=== PATIENT | male | born 1990 | race Caucasian/White ===

== ENCOUNTER 2020-06-03 12:39 | Emergency (ER) | payer OTHER ==
[2020-06-03 12:48] VITALS: BP 117/56; PULSE 67; RESP 16; TEMP 98
[2020-06-03] MEDS ORDERED: LIDOCAINE 1% INJ 10MG/ML (20 ML MDV) SQ ONE (13:28)
[2020-06-03] MEDS ORDERED: DIPH,PERTUS(ACELL)TETVAC-LF 0.5 ML VIAL IM ONE (13:28)
[2020-06-03] MEDS ORDERED: BACITRACIN OINT 1 EACH PACKET TOPICAL ONE (13:28)
[2020-06-03] MEDS ORDERED: CEPHALEXIN 500MG STARTER PACK 4 CAP BTL PO STA (14:19)
--- NOTE | 2020-06-03 14:19 | ED ---
Wound/Laceration HPI - General Chief Complaint: Wound/Laceration Stated Complaint: R hand laceration Time Seen by Provider: 06/03/20 12:53 Source: patient Mode of arrival: ambulatory Limitations: no limitations - History of Present Illness Initial Comments: 30 year-old male patient presents to the emergency department for evaluation of laceration to his right middle finger. Patient states just prior to arrival he was using a circular saw and accidentally cut his finger. He denies any difficultly with range of motion. Denies numbness or tingling to the finger. Denies any other injuries. He is unsure when his last tetanus vaccine was. Denies use of blood thinners. Patient denies any headache, neck pain, back pain, chest pain, shortness of breath, dizziness, weakness, abdominal pain, nausea, vomiting, or difficulties with bowel movements or urination. - Related Data Previous Rx's Medication Instructions Recorded Cephalexin [Keflex] 500 mg PO BID #10 cap 06/03/20 Allergies Allergy/AdvReac Type Severity Reaction Status Date / Time No Known Allergies Allergy Verified 06/03/20 12:48 Review of Systems ROS Statement: Those systems with pertinent positive or pertinent negative responses have been documented in the HPI. ROS Other: All systems not noted in ROS Statement are negative. Past Medical History Past Medical History: No Reported History History of Any Multi-Drug Resistant Organisms: None Reported Past Surgical History: No Surgical Hx Reported Past Psychological History: No Psychological Hx Reported Smoking Status: Never smoker Past Alcohol Use History: None Reported Past Drug Use History: None Reported General Exam Limitations: no limitations General appearance: alert, in no apparent distress, other (Physical well-devel oped, well-nourished adult male patient in no acute distress. Vital signs upon presentation are T 98.2F with pulse 67, respirations 16, blood pressure 117/56, pulse ox 95% on room air.) Eye exam: Present: normal appearance, PERRL, EOMI. Absent: scleral icterus, conjunctival injection, periorbital swelling ENT exam: Present: normal exam, normal oropharynx, mucous membranes moist Respiratory exam: Present: normal lung sounds bilaterally. Absent: respiratory distress, wheezes, rales, rhonchi, stridor Cardiovascular Exam: Present: regular rate, normal rhythm, normal heart sounds. Absent: systolic murmur, diastolic murmur, rubs, gallop, clicks Extremities exam: Present: full ROM, normal capillary refill, other (There is 2cm laceration to the tip of the right middle finger. No active bleeding. Full ROM with and without resistance. Cap refill less than 3 seconds. Pedal pulses 2+.). Absent: normal inspection, tenderness, pedal edema, joint swelling, calf tenderness Neurological exam: Present: alert, oriented X3, CN II-XII intact Psychiatric exam: Present: normal affect, normal mood Skin exam: Present: warm, dry, intact, normal color. Absent: rash Course Vital Signs 06/03/20 12:45 Temperature 98 F Pulse Rate 67 Respiratory 16 Rate Blood Pressure 117/56 O2 Sat by Pulse 95 Oximetry Procedures - Laceration Laceration #1 Consent Obtained: verbal consent Indication: laceration Site: hand (right middle finger) Size (cm): 2 Description: linear Depth: simple, single layer Anesthetic Used: lidocaine 1% Anesthesia Technique: nerve block Amount (mls): 4 Pre-repair: irrigated extensively Type of Sutures: nylon Size of Sutures: 5-0 Number of Sutures: 3 Technique: simple, interrupted Patient Tolerated Procedure: well, no complications Medical Decision Making - Medical Decision Making 30-year-old male patient percents to the emergency department today for evaluation of laceration to the right middle finger. Physical examination did reveal 2 cm laceration to the tip of the right middle finger. He had good range of motion with without resistance. Neurovascular status is intact. I did recommend x-ray to rule out any bony injury, patient refused. He did agree to take antibiotics for prevention of infection. He'll be started on Keflex. Wound was repaired as documented. He is brought in as finger splint. He is instructed follow up with his primary care physician for recheck in 1-2 days. Educated regarding wound care and signs or symptoms of infection. He is instructed to return in 7 days to have the stitches removed. Return parameters were discussed in detail. He verbalizes understanding and agrees with this p tammie. My attending is Dr. Gutierrez. Disposition Clinical Impression: Laceration of right middle finger Disposition: HOME SELF-CARE Condition: Good Instructions (If sedation given, give patient instructions): Care For Your Stitches (ED), Laceration (ED) Additional Instructions: Complete antibiotic prescription in full. Take one tablet twice daily. Take Tylenol Motrin for pain control. Monitor for signs or symptoms of infection including but not limited to redness, swelling, drainage of pus, fever, or chills. Return in 7 days to have the stitches removed. Follow-up through primary care physician for recheck in 1-2 days. Return to the emergency department for any new, worsening, or concerning symptoms. Prescriptions: Cephalexin [Keflex] 500 mg PO BID #10 cap Is patient prescribed a controlled substance at d/c from ED?: No Referrals: Eliecer Fonseca MD [Primary Care Provider] - 1-2 days Time of Disposition: 14:19
== END 2020-06-03 14:26 | disposition home or self-care (01) ==
LOC: EC 12:39
DX: S61.212A Laceration without foreign body of right middle finger without damage to nail, initial encounter (principal); Z23 Encounter for immunization; W26.8XXA Contact with other sharp object(s), not elsewhere classified, initial encounter
CPT/HCPCS: 90715; 99282; 12001; 90471; J2001